=== PATIENT | male | born 1990 | race African-American/Black ===

== ENCOUNTER 2018-12-23 14:12 | Emergency (ER) | payer MEDICAID ==
[~2018-12-23] VITALS: Ht 175.3 cm; Wt 77.1 kg
[~2018-12-23 14:12] MED LIST: DOXYCYCLINE
[2018-12-23 14:49] VITALS: BP 147/99
== END 2018-12-23 14:51 | disposition home or self-care (01) ==
LOC: ER 14:26
DX: Z04.1 Encounter for examination and observation following transport accident (principal); J45.909 Unspecified asthma, uncomplicated

== ENCOUNTER → 2019-11-09 | Emergency (ER) | payer MEDICAID ==
[~2019-11-09] VITALS: Ht 175.3 cm; Wt 77.1 kg
[~2019-11-09] MED LIST changes: +HYDROcodone-ACET 5/325MG TAB PO ONE
[2019-11-09 05:00] VITALS: BP 131/82
== END | disposition home or self-care (01) ==
LOC: ER 03:09
DX: S01.111A Laceration without foreign body of right eyelid and periocular area, initial encounter (principal); S61.213A Laceration without foreign body of left middle finger without damage to nail, initial encounter; J45.909 Unspecified asthma, uncomplicated; Y04.2XXA Assault by strike against or bumped into by another person, initial encounter; Y93.89 Activity, other specified; Y92.098 Other place in other non-institutional residence as the place of occurrence of the external cause; Y99.8 Other external cause status
CPT/HCPCS: 12001; 12013; 70450; 70486; 71045; 71250; 72125; 73120; 74176